=== PATIENT | male | born 1940 | race Caucasian/White ===

== ENCOUNTER 2016-12-10 12:22 | Observation (INO) | payer OTHER ==
[2016-12-10 12:30] VITALS: BMI 35.7
--- NOTE | 2016-12-10 13:33 | PDOC ---
History of Present Illness - General History Source: Patient Exam Limitations: No Limitations - History of Present Illness Initial Comments: 12/10/16 16:21 The patient is a 76 year old male, with a significant past medical history of CAD s/p (x5) stents, HTN, high cholesterol, who was sent to the emergency department after lab work shows elevated liver enzymes and ferritin level. He arrives with c/os of fatigue, abdominal pain, nausea, and hip pain for about 2 weeks. He denies any black stool or red stool. He notes his last bowel movement was loose. He denies his abdominal pain being related to eating. He notes his abdominal pain is often worse at night, and is priarmily in the mid abdomen and is non raditing. He denies any recent fevers, chills, headache or dizziness. He denies any recent vomit, diarrhea or constipation. He denies any recent chest pain or shortness of breath. He denies any recent dysuria, frequency, urgency or hematuria. Allergies: NKA Past surgical history: See HPI Social History: Nonsmoker. Denies EtOH use and recreational drug use. Primary Care Physician: Director Of Content And Programming: (not with [facility]) <Devante Sharma - Last Filed: 12/10/16 16:21> <Daren Aguilera - Last Filed: 12/10/16 17:24> - General Chief Complaint: Revisit, Lab Variance Stated Complaint: (PCP SENT) FATIGUE Time Seen by Provider: 12/10/16 13:16 Past History <Devante Sharma - Last Filed: 12/10/16 16:21> - Past Medical History Cardiac Disorders: Yes HTN: Yes - Surgical History Cardiac Surgery: Yes (STENTS) - Psycho/Social/Smoking Cessation Hx Anxiety: No Suicidal Ideation: No Smoking History: Never smoked Hx Alcohol Use: Yes (SOCIAL) Drug/Substance Use Hx: No Substance Use Type: None <Daren Aguilera - Last Filed: 12/10/16 17:24> - Past Medical History Allergies/Adverse Reactions: Allergies Allergy/AdvReac Type Severity Reaction Status Date / Time No Known Allergies Allergy Verified 12/10/16 12:30 Home Medications: Ambulatory Orders Allopurinol [Zyloprim -] 100 mg PO DAILY 12/10/16 Aspirin [ASA -] 81 mg PO DAILY 12/10/16 Atorvastatin Ca [Lipitor] 40 mg PO HS 12/10/16 Clopidogrel Bisulfate [Plavix -] 75 mg PO DAILY 12/10/16 Isosorbide Mononitrate [Imdur -] 30 mg PO DAILY 12/10/16 Metoprolol Succinate [Toprol Xl] 100 mg PO DAILY 12/10/16 Niacin [Niaspan] 1,000 mg PO DAILY 12/10/16 Non-Formulary 0 mg PO ASDIR 12/10/16 Ranolazine [Ranexa] 500 mg PO BID 12/10/16 Vitamin B Complex 1 each PO DAILY 12/10/16 Review of Systems - Review of Systems Able to Perform ROS?: Yes Comments:: 12/10/16 16:21 CONSTITUTIONAL: +Fatigue. No reported: Fever, Chills, Diaphoresis, Generalized Weakness, Malaise , Loss of Appetite HEENT: No reported: Rhinorrhea, Nasal Congestion, Throat Pain, Throat Swelling, Difficulty Swallowing, Mouth Swelling, Ear Pain, Eye Pain, Visual Changes CARDIOVASCULAR: No reported: Chest Pain, Syncope, Palpitations, Irregular Heart Rate, Lightheadedness, Peripheral Edema RESPIRATORY: No reported: Cough, Shortness of Breath, SOB with Exertion, Orthopnea, Wheezing , Stridor, Hemoptysis GASTROINTESTINAL: +Nausea and Abd pain. No reported: Vomiting, Diarrhea, Constipation, Melena, Hematochezia GENITOURINARY: No reported: Dysuria, Frequency, Urgency, Hesitancy, Flank Pain, Genital Pain MUSCULOSKELETAL: No reported: Myalgia, Arthralgia, Joint Swelling, Back pain, Neck Pain SKIN: No reported: Rash, Itching, Pallor HEMATOLOGIC/IMMUNOLOGIC: No reported: Easy Bleeding, Easy Bruising, Lymphadenopathy, Frequent infections ENDOCRINE: No reported: Unexplained Weight Gain, Unexplained Weight Loss, Heat Intolerance , Cold Intolerance NEUROLOGIC: No reported: Headache, Focal Weakness, Paresthesias, Vertigo, Lightheadedness, Unsteady Gait, Seizure, Mental Status Changes, Incontinence PSYCHIATRIC: No reported: Anxiety, Depression <Devante Sharma - Last Filed: 12/10/16 16:21> *Physical Exam - Vital Signs Last Vital Signs Temp Pulse Resp BP Pulse Ox 97.4 F L 109 H 20 122/91 95 12/10/16 12:27 12/10/16 12:27 12/10/16 12:27 12/10/16 12:27 12/10/16 12:27 - Physical Exam Comments: 12/10/16 16:21 GENERAL: The patient is awake, alert, Nontoxic - in no acute distress. HEAD: Normocephalic, atraumatic. EYES: extraocular movements intact, sclera anicteric, conjunctiva clear. ENT: Normal voice, Moist mucous membranes. NECK: Normal range of motion, supple LUNGS: Breath sounds equal, clear to auscultation bilaterally. No wheezes, no rhonchi, no rales. HEART: Regular rate and rhythm, without murmur, rub or gallop. ABDOMEN: Soft, nontender, normoactive bowel sounds. No guarding, no rebound.No CVA tenderness EXTREMITIES: Normal range of motion, no edema. Bruising on the left distal LE. No cords, erythema, or tenderness. NEUROLOGICAL: No facial asymmetry, Normal speech. PSYCH: Normal mood, normal affect. SKIN: Warm, Dry, normal turgor. <Devante Sharma - Last Filed: 12/10/16 16:21> - Vital Signs Last Vital Signs Temp Pulse Resp BP Pulse Ox 97.4 F L 109 H 20 122/91 95 12/10/16 12:27 12/10/16 12:27 12/10/16 12:27 12/10/16 12:27 12/10/16 12:27 <Daren Aguilera - Last Filed: 12/10/16 17:24> Heart Score/ECG Review - ECG Impressions Comment:: 12/10/16 16:33 Twelve-lead EKG was performed and reviewed by me. There is normal sinus rhythm with a normal rate. rate of 90 TWI in V3-V5 - present on prior ekg supplied from Dr. Marquis MARTÍNEZ <Daren Aguilera - Last Filed: 12/10/16 17:24> ED Treatment Course - LABORATORY CBC & Chemistry Diagram: 12/10/16 14:06 12/10/16 14:06 - ADDITIONAL ORDERS Additional order review: Laboratory Results 12/10/16 12/10/16 14:06 14:06 Sodium 139 Potassium 4.6 Chloride 103 Carbon Dioxide 27 Anion Gap 9 BUN 15 Creatinine 0.9 Creat Clearance w eGFR > 60 Random Glucose 114 H Calcium 8.0 L Ferritin Cancelled Total Bilirubin 0.6 AST 124 H ALT 25 Alkaline Phosphatase 899 H Creatine Kinase 95 Troponin I 0.18 H Total Protein 6.2 L Albumin 2.9 L 12/10/16 14:06 RBC 4.76 MCV 94.7 MCHC 34.0 RDW 13.1 MPV 7.3 L Neutrophils % Automated Logistics Specialist Lymphocytes % Automated Logistics Specialist Monocytes % Automated Logistics Specialist Eosinophils % Automated Logistics Specialist Basophils % Automated Logistics Specialist <Devante Sharma - Last Filed: 12/10/16 16:21> - LABORATORY CBC & Chemistry Diagram: 12/10/16 14:06 12/10/16 14:06 <Daren Aguilera - Last Filed: 12/10/16 17:24> Medical Decision Making - Medical Decision Making 12/10/16 16:36 76y M sent to ED for evaluation by Dr. Zapata pt has been having upper abd/epigastric pain for 2 weeks, typically wrose in the evening w/o any sob, diaphoresis, exertional sypmtoms pt had elevated lfts with alk phos in 700s and very high ferritin level pts labs noted for non negative tropnin of 0.18 when compared to priro ekg, hehas TWI in T3-T5 was was present in prior ekg provided by dr. Zapata consider posisble cardiac cause will obtian US to r/o liver and gb pathology will likely admit the pt for further management 12/10/16 17:23 pt reassessed, states she is feeling better. no cp or abd pain currently case dw dr. zapata agreed with admission requested consult from dr. stephenson of cardiology will admit to telemetry Case discussed in detail with admitting physician including history, physical exam and ancillary studies. Admitting physician has assumed care for the patient, will follow all pending diagnostics and will complete the evaluation and treatment. <Daren Aguilera - Last Filed: 12/10/16 17:24> *DC/Admit/Observation/Transfer - Attestations Scribe Attestion: 12/10/16 16:22 Documentation prepared by Devante Sharma, acting as medical equipment sales for Daren Aguilera MD. <Devante Sharma - Last Filed: 12/10/16 16:21> - Discharge Dispostion Admit: Yes <Daren Aguilera - Last Filed: 12/10/16 17:24> Diagnosis at time of Disposition: Abdominal pain Qualifiers: Abdominal location: epigastric Qualified Code(s): R10.13 - Epigastric pain - Discharge Dispostion Condition at time of disposition: Guarded - Referrals Referrals: Fely Zapata MD [Primary Care Provider] -
[2016-12-10 14:25] LABS: MCH 32.2 pg (25.7-33.7); MEAN CELL VOLUME 94.7 fl (80-96); MEAN PLT VOLUME 7.3 fl (7.5-11.1); PLATELET COUNT 173 K/MM3 (134-434); RDW 13.1 % (11.9-15.9); WHITE BLOOD COUNT 8.3 K/mm3 (4.0-10.0)
[2016-12-10 15:20] LABS: ALBUMIN 2.9 g/dl (3.4-5.0); ANION GAP 9 (8-16); CO2 27 mmol/L (21-32); GLUCOSE,RANDOM 114 mg/dL (74-106)
[2016-12-10 15:25] LABS: ALK PHOS 899 U/L (45-117); BILIRUBIN,TOTAL 0.6 mg/dL (0.2-1.0); CREATININE 0.9 mg/dL (0.7-1.3); SGOT/AST 124 U/L (15-37); SGPT/ALT 25 U/L (12-78); TOT PROT 6.2 g/dl (6.4-8.2); TROPONIN I 0.18 ng/ml (0.00-0.05)
[2016-12-10] MEDS ORDERED: ASPIRIN 81 MG CHEWABLE TABLETS PO ONE (16:33)
[2016-12-10] MEDS ORDERED: ASPIRIN 81 MG CHEWABLE TABLETS ONE (16:45)
[2016-12-10 18:49] LABS: PLATELET ESTIMATE ADEQUATE (NORMAL)
[2016-12-10 20:15] LABS: FERRITIN 4959.996 ng/ml (16.4-293.9)
[2016-12-10] MEDS ORDERED: ZOLPIDEM TARTRATE 5 MG TABLET PO ONE (21:15)
[2016-12-10] MEDS: ATORVASTATIN CA 40 MG TABLET (FP) PO SCH (22:17)
[2016-12-10] MEDS: PANTOPRAZOLE SODIUM 100 ML IVPB SCH (22:17)
[2016-12-10] MEDS: HEPARIN NA (PORCINE) 5,000 UNITS/ML 1ML VIAL SQ SCH (22:17)
[2016-12-10] MEDS: RANOLAZINE E.R. 500 MG TABLET (FP) PO SCH (22:17)
[2016-12-10 22:58] LABS: TROPONIN I 0.19 ng/ml (0.00-0.05)
[2016-12-11 07:21] LABS: MCH 32.6 pg (25.7-33.7); MCHC 34.7 g/dl (32.0-35.9); MEAN CELL VOLUME 94.1 fl (80-96); MEAN PLT VOLUME 7.6 fl (7.5-11.1); PLATELET COUNT 161 K/MM3 (134-434); RDW 13.2 % (11.9-15.9); WHITE BLOOD COUNT 7.4 K/mm3 (4.0-10.0)
[2016-12-11 08:36] LABS: ALBUMIN 2.9 g/dl (3.4-5.0); ALK PHOS 863 U/L (45-117); ANION GAP 12 (8-16); BILIRUBIN,TOTAL 0.8 mg/dL (0.2-1.0); CALCIUM 8.1 mg/dL (8.5-10.1); CO2 26 mmol/L (21-32); CREATININE 0.9 mg/dL (0.7-1.3); GLUCOSE,RANDOM 93 mg/dL (74-106); SGOT/AST 117 U/L (15-37); SGPT/ALT 23 U/L (12-78); TOT PROT 5.8 g/dl (6.4-8.2); TROPONIN I 0.15 ng/ml (0.00-0.05)
[2016-12-11] MEDS: CLOPIDOGREL BISULFATE 75 MG TABLET (FP) PO SCH (10:49)
[2016-12-11] MEDS: METOPROLOL SUCCINATE 100 MG TAB.SR.24H (FP) PO SCH (10:52)
[2016-12-11] MEDS: ASPIRIN 81 MG CHEWABLE TABLETS PO SCH (10:56)
[2016-12-11] MEDS: ALLOPURINOL 100 MG TABLET (FP) PO SCH (10:57)
[2016-12-11] MEDS: ISOSORBIDE MONONITRATE 30 MG TAB.SR.24H (FP) PO SCH (10:57)
[2016-12-11] MEDS: RANOLAZINE E.R. 500 MG TABLET (FP) PO SCH ×2 (10:57→21:01)
[2016-12-11] MEDS: PANTOPRAZOLE SODIUM 100 ML IVPB SCH (10:59)
[2016-12-11] MEDS: HEPARIN NA (PORCINE) 5,000 UNITS/ML 1ML VIAL SQ SCH ×2 (10:59→21:01)
--- NOTE | 2016-12-11 11:08 | EKG ---
Test Reason : Blood Pressure : / mmHG Vent. Rate : 084 BPM Atrial Rate : 084 BPM P-R Int : 190 ms QRS Dur : 142 ms QT Int : 424 ms P-R-T Axes : 044 072 016 degrees QTc Int : 501 ms NORMAL SINUS RHYTHM RIGHT BUNDLE BRANCH BLOCK POSSIBLE INFERIOR INFARCT , AGE UNDETERMINED ABNORMAL ECG WHEN COMPARED WITH ECG OF 10-DEC-2016 14:31, BORDERLINE CRITERIA FOR INFERIOR INFARCT ARE NOW PRESENT NONSPECIFIC T WAVE ABNORMALITY, IMPROVED IN INFERIOR LEADS T WAVE INVERSION NO LONGER EVIDENT IN ANTEROLATERAL LEADS Confirmed by WALTER DOMINGO MD ([id number]) on 12/11/2016 11:08:04 AM Referred By: HEIKE LEON Confirmed By:WALTER DOMINGO MD
--- NOTE | 2016-12-11 11:09 | EKG ---
Test Reason : Blood Pressure : / mmHG Vent. Rate : 090 BPM Atrial Rate : 090 BPM P-R Int : 178 ms QRS Dur : 132 ms QT Int : 412 ms P-R-T Axes : 035 049 008 degrees QTc Int : 504 ms NORMAL SINUS RHYTHM POSSIBLE LEFT ATRIAL ENLARGEMENT RIGHT BUNDLE BRANCH BLOCK T WAVE ABNORMALITY, CONSIDER LATERAL ISCHEMIA ABNORMAL ECG WHEN COMPARED WITH ECG OF 27-MAY-2005 08:55, RIGHT BUNDLE BRANCH BLOCK IS NOW PRESENT Confirmed by CHAYO HAMILTON, WALTER ([id number]) on 12/11/2016 11:09:13 AM Referred By: Confirmed By:WALTER DOMINGO MD
[2016-12-11 11:30] LABS: PLATELET ESTIMATE ADEQUATE (NORMAL)
--- NOTE | 2016-12-11 11:52 | HP ---
Admitting History and Physical - Primary Care Physician PCP: Fely Cho - Admission Chief Complaint: abnormal labs and bloating History of Present Illness: The patient is a 76 year old male, with a significant past medical history of CAD s/p (x5) stents, HTN, high cholesterol, who was sent to the emergency department after lab work shows elevated liver enzymes and ferritin level. He arrives with c/os of fatigue, abdominal pain, nausea, and hip pain for about 2 weeks. He denies any black stool or red stool. He notes his last bowel movement was loose. He denies his abdominal pain being related to eating. He notes his abdominal pain is often worse at night, and is in the mid abdomen and is non radiating. He denies any recent fevers, chills, headache or dizziness. He denies any recent vomit, diarrhea or constipation. He denies any recent chest pain or shortness of breath. He denies any recent dysuria, frequency, urgency or hematuria. Allergies: NKA Past surgical history: See HPI Social History: Nonsmoker. Denies EtOH use and recreational drug use. Primary Care Physician: Gastroenterology Manager: (not with [facility]) History Source: Patient - Past Medical History Cardiovascular: Yes: CAD, HTN, Hyperlipdemia - Smoking History Smoking history: Never smoked Have you smoked in the past 12 months: No - Alcohol/Substance Use Hx Alcohol Use: Yes (SOCIAL) Home Medications - Allergies Allergies/Adverse Reactions: Allergies Allergy/AdvReac Type Severity Reaction Status Date / Time No Known Allergies Allergy Verified 12/10/16 12:30 - Home Medications Home Medications: Ambulatory Orders Allopurinol [Zyloprim -] 100 mg PO DAILY 12/10/16 Aspirin [ASA -] 81 mg PO DAILY 12/10/16 Atorvastatin Ca [Lipitor] 40 mg PO HS 12/10/16 Clopidogrel Bisulfate [Plavix -] 75 mg PO DAILY 12/10/16 Isosorbide Mononitrate [Imdur -] 30 mg PO DAILY 12/10/16 Metoprolol Succinate [Toprol Xl] 100 mg PO DAILY 12/10/16 Niacin [Niaspan] 1,000 mg PO DAILY 12/10/16 Non-Formulary 0 mg PO ASDIR 12/10/16 Ranolazine [Ranexa] 500 mg PO BID 12/10/16 Vitamin B Complex 1 each PO DAILY 12/10/16 Review of Systems - Review of Systems HENT: reports: No Symptoms Neck: reports: No Symptoms Cardiovascular: reports: No Symptoms Respiratory: reports: No Symptoms Gastrointestinal: reports: Bloating Physical Examination Vital Signs: Vital Signs Temperature 98.5 F 12/11/16 05:25 Pulse Rate 77 12/11/16 05:25 Respiratory Rate 20 12/11/16 05:25 Blood Pressure 136/72 12/11/16 05:25 O2 Sat by Pulse Oximetry (%) 98 12/10/16 21:00 Constitutional: Yes: Calm Neck: Yes: Trachea Midline Cardiovascular: Yes: Regular Rate and Rhythm, S1, S2 Respiratory: Yes: CTA Bilaterally Gastrointestinal: Yes: Normal Bowel Sounds, Soft Edema: No Neurological: Yes: Alert, Oriented Labs: CBC, BMP 12/11/16 05:37 12/11/16 05:37 Problem List - Problems (1) Alkaline phosphatase elevation Assessment/Plan: check PSA GGTP liver ultrasound/ bone scan GI eval Code(s): R74.8 - ABNORMAL LEVELS OF OTHER SERUM ENZYMES (2) Abdominal pain Assessment/Plan: inc ALk phos ,ferritin possible bony or liver source GI consult check ggtp liver sono bone scan tumor markers sent Code(s): R10.9 - UNSPECIFIED ABDOMINAL PAIN Qualifiers: Abdominal location: epigastric Qualified Code(s): R10.13 - Epigastric pain (3) CAD (coronary artery disease) Assessment/Plan: cardio consult continue asa ,plavix and ranexa for now Code(s): I25.10 - ATHSCL HEART DISEASE OF [place] CORONARY ARTERY W/O ANG PCTRS
--- NOTE | 2016-12-11 13:46 | CON.CARD ---
Consult Consult Specialty:: cardiology Referred by:: Marquis Reason for Consultation:: Abnormal cardiac markers, coronary artery disease - History of Present Illness Chief Complaint: Nausea and vomiting, abdominal pain History of Present Illness: The patient is a 76-year-old obese man, with a history of hypertension, hyperlipidemia, coronary artery disease, status post multiple stents, now admitted with abdominal pain, nausea, fatigue. The patient denies chest pains. He is currently comfortable and symptom free. The patient was found to have a high ferritin and alkaline phosphatase levels ( 900). Troponin was 0.18. There were no new acute ECG changes. ECG; normal sinus rhythm, normal axis, first-degree AV block, right bundle branch block, old inferior infarct, nonspecific ST-T changes. - History Source History Provided By: Patient, Family Member, Medical Record Limitations to Obtaining History: No Limitations - Past Medical History Cardio/Vascular: Yes: CAD, HTN, Hyperlipdemia - Alcohol/Substance Use Hx Alcohol Use: Yes (SOCIAL) - Smoking History Smoking history: Never smoked Have you smoked in the past 12 months: No Home Medications - Allergies Allergies/Adverse Reactions: Allergies Allergy/AdvReac Type Severity Reaction Status Date / Time No Known Allergies Allergy Verified 12/10/16 12:30 - Home Medications Home Medications: Ambulatory Orders Allopurinol [Zyloprim -] 100 mg PO DAILY 12/10/16 Aspirin [ASA -] 81 mg PO DAILY 12/10/16 Atorvastatin Ca [Lipitor] 40 mg PO HS 12/10/16 Clopidogrel Bisulfate [Plavix -] 75 mg PO DAILY 12/10/16 Isosorbide Mononitrate [Imdur -] 30 mg PO DAILY 12/10/16 Metoprolol Succinate [Toprol Xl] 100 mg PO DAILY 12/10/16 Niacin [Niaspan] 1,000 mg PO DAILY 12/10/16 Non-Formulary 0 mg PO ASDIR 12/10/16 Ranolazine [Ranexa] 500 mg PO BID 12/10/16 Vitamin B Complex 1 each PO DAILY 12/10/16 Review of Systems - Review of Systems Constitutional: reports: No Symptoms Eyes: reports: No Symptoms HENT: reports: No Symptoms Neck: reports: No Symptoms Respiratory: reports: No Symptoms Gastrointestinal: reports: Abdominal Pain, Bloating, Nausea Genitourinary: reports: No Symptoms Breasts: reports: No Symptoms Reported Musculoskeletal: reports: No Symptoms Integumentary: reports: No Symptoms Neurological: reports: No Symptoms Endocrine: reports: No Symptoms Hematology/Lymphatic: reports: No Symptoms Psychiatric: reports: No Symptoms - Risk Factors Known Risk Factors: Yes: Gender, Hypercholesterolemia, Hypertension, Physical Inactivity, Prior DE /Emb Stroke Vital Signs: Vital Signs Temperature 98.6 F 12/11/16 10:00 Pulse Rate 78 12/11/16 10:00 Respiratory Rate 20 12/11/16 10:00 Blood Pressure 122/66 12/11/16 10:00 O2 Sat by Pulse Oximetry (%) 98 12/11/16 10:00 Constitutional: Yes: No Distress, Calm, Other (Obese) Eyes: Yes: WNL HENT: Yes: WNL Neck: Yes: WNL, Supple Respiratory: Yes: WNL Gastrointestinal: Yes: Normal Bowel Sounds, Soft, Abdomen, Obese Renal/: Yes: WNL Cardiovascular: Yes: WNL, Regular Rate and Rhythm PMI: Non-Displaced Musculoskeletal: Yes: WNL Extremities: Yes: WNL Edema: No Peripheral Pulses WNL: Yes Integumentary: Yes: WNL Neurological: Yes: WNL ...Motor Strength: WNL Psychiatric: Yes: WNL - Other Data Labs, Other Data: CBC, BMP 12/11/16 05:37 12/11/16 05:37 Troponin, BNP 12/10/16 12/11/16 21:30 05:37 Troponin I 0.19 H 0.15 H Troponin, BNP 12/10/16 12/11/16 21:30 05:37 Troponin I 0.19 H 0.15 H Assessment/Plan 76-year-old man with a history of hypertension, hyperlipidemia, coronary artery disease, status post multiple stents, status post recent PTCA of the LAD and diagonal branches at the [facility], now presenting with abdominal pain , markedly elevated alkaline phosphatase and ferritin levels. Mild troponin elevation. The patient reports no angina. He is quite comfortable. Would continue present care and regimen. Workup for underlying malignancy. There is no need for further cardiac workup at this point. Will follow results.
[2016-12-11] MEDS: ATORVASTATIN CA 40 MG TABLET (FP) PO SCH (21:01)
[2016-12-12 08:29] LABS: ALBUMIN 2.6 g/dl (3.4-5.0); ANION GAP 10 (8-16); BILIRUBIN,TOTAL 0.8 mg/dL (0.2-1.0); CALCIUM 7.8 mg/dL (8.5-10.1); CO2 25 mmol/L (21-32); CREATININE 0.8 mg/dL (0.7-1.3); GLUCOSE,RANDOM 91 mg/dL (74-106); SGOT/AST 100 U/L (15-37); SGPT/ALT 21 U/L (12-78); TOT PROT 5.6 g/dl (6.4-8.2)
--- NOTE | 2016-12-12 08:48 | PN ---
Progress Note, Physician History of Present Illness: WEAK POOR APPETITE NO CP - Current Medication List Current Medications: Active Medications Allopurinol (Zyloprim -) 100 mg PO DAILY [facility] Last Admin: 12/11/16 10:57 Dose: 100 mg Aspirin (Asa -) 81 mg PO DAILY [facility] Last Admin: 12/11/16 10:56 Dose: 81 mg Atorvastatin Calcium (Lipitor -) 40 mg PO HS [facility] Last Admin: 12/11/16 21:01 Dose: 40 mg Clopidogrel Bisulfate (Plavix -) 75 mg PO DAILY [facility] Last Admin: 12/11/16 10:49 Dose: 75 mg Heparin Sodium (Porcine) (Heparin -) 5,000 unit SQ BID [facility] Last Admin: 12/11/16 21:01 Dose: 5,000 unit Pantoprazole Sodium (Protonix 40mg Ivpb (Pre-Docked)) 100 mls @ 200 mls/hr IVPB DAILY [facility] Last Admin: 12/11/16 10:59 Dose: 200 mls/hr Isosorbide Mononitrate (Imdur -) 30 mg PO DAILY [facility] Last Admin: 12/11/16 10:57 Dose: 30 mg Metoprolol Succinate (Toprol Xl -) 100 mg PO DAILY [facility] Last Admin: 12/11/16 10:52 Dose: 100 mg Ranolazine (Ranexa -) 500 mg PO BID [facility] Last Admin: 12/11/16 21:01 Dose: 500 mg - Objective Vital Signs: Vital Signs Temperature 98.3 F 12/12/16 05:56 Pulse Rate 69 12/12/16 05:56 Respiratory Rate 18 12/12/16 05:56 Blood Pressure 142/76 12/12/16 05:56 O2 Sat by Pulse Oximetry (%) 95 12/11/16 21:00 Cardiovascular: Yes: Regular Rate and Rhythm Respiratory: Yes: Regular, CTA Bilaterally Gastrointestinal: Yes: Normal Bowel Sounds, Soft Labs: CBC, BMP 12/11/16 05:37 - ....Imaging Other: Report Reviewed (BONE SCAN--POSITIVE METS) Problem List - Problems (1) Prostate cancer Assessment/Plan: follow [facility] urology Code(s): C61 - MALIGNANT NEOPLASM OF PROSTATE (2) Prostate cancer metastatic to bone Assessment/Plan: await psa urology/oncology Code(s): C61 - MALIGNANT NEOPLASM OF PROSTATE C79.51 - SECONDARY MALIGNANT NEOPLASM OF BONE Assessment/Plan - Problems (1) Alkaline phosphatase elevation Assessment/Plan: check PSA GGTP liver ultrasound/ bone scan--c/w METS GI eval Code(s): R74.8 - ABNORMAL LEVELS OF OTHER SERUM ENZYMES (2) Abdominal pain Assessment/Plan: inc ALk phos ,ferritin possible bony or liver source GI consult check ggtp liver sono bone scan tumor markers sent Code(s): R10.9 - UNSPECIFIED ABDOMINAL PAIN Qualifiers: Abdominal location: epigastric Qualified Code(s): R10.13 - Epigastric pain (3) CAD (coronary artery disease) Assessment/Plan: cardio consult continue asa ,plavix and ranexa for now Code(s): I25.10 - ATHSCL HEART DISEASE OF [place] CORONARY ARTERY W/O ANG PCTRS
[2016-12-12 08:52] LABS: ALK PHOS 823 U/L (45-117)
[2016-12-12 08:55] LABS: FERRITIN 5665.327 ng/ml (16.4-293.9)
[2016-12-12 09:19] LABS: TROPONIN I 0.13 ng/ml (0.00-0.05)
[2016-12-12] MEDS: CLOPIDOGREL BISULFATE 75 MG TABLET (FP) PO SCH (10:07)
[2016-12-12] MEDS: ISOSORBIDE MONONITRATE 30 MG TAB.SR.24H (FP) PO SCH (10:07)
[2016-12-12] MEDS: RANOLAZINE E.R. 500 MG TABLET (FP) PO SCH ×2 (10:07→22:38)
[2016-12-12] MEDS: METOPROLOL SUCCINATE 100 MG TAB.SR.24H (FP) PO SCH (10:07)
[2016-12-12] MEDS: ALLOPURINOL 100 MG TABLET (FP) PO SCH (10:08)
[2016-12-12] MEDS: HEPARIN NA (PORCINE) 5,000 UNITS/ML 1ML VIAL SQ SCH ×2 (10:08→22:39)
[2016-12-12] MEDS: ASPIRIN 81 MG CHEWABLE TABLETS PO SCH (10:08)
[2016-12-12] MEDS: PANTOPRAZOLE SODIUM 100 ML IVPB SCH (10:08)
--- NOTE | 2016-12-12 13:39 | PN ---
Progress Note (short form) - Note Progress Note: Consult dictated 76 year old with history of radical prostatectomy in 1997 for prostate cancer. Abnormal bone scan in 2016. Under care of Shawn, Dr. Ku, and receiving hormone injections past 5-6 months . Presents now with abdominal pains , nausea, some lower back pains . New bone scan with progressive bone mets ( when compared to 2016) in addition to new bone mets. Unclear without baseline bone scan prior to hormone therapy initiation, timing and occurrence of bone mets and/or response. PSA response may be surrogate to suggest response . Has markedly elevated ferritin. If this is a new finding may be related to underling malignancy and mets. Does not fit many of the criteria of hemophagocytic lymphohistiocytosis syndrome. Suggest Follow up with Dr. Ku re:response to hormonal therapy. Will obtain CT of Liver Check HFE With back pain and bone mets , would order MRI of spine if feasible.
--- NOTE | 2016-12-12 13:43 | PN ---
Progress Note, Physician Chief Complaint: The patient is quite comfortable. Abdominal pain resolved. No chest pains. His breathing comfortably. History of Present Illness: The patient is a 76-year-old obese man, with a history of hypertension, hyperlipidemia, coronary artery disease, status post multiple stents, now admitted with abdominal pain, nausea, fatigue. The patient denies chest pains. He is currently comfortable and symptom free. The patient was found to have a high ferritin and alkaline phosphatase levels ( 900). Troponin was 0.18. There were no new acute ECG changes. ECG; normal sinus rhythm, normal axis, first-degree AV block, right bundle branch block, old inferior infarct, nonspecific ST-T changes. - Current Medication List Current Medications: Active Medications Allopurinol (Zyloprim -) 100 mg PO DAILY [facility] Last Admin: 12/12/16 10:08 Dose: 100 mg Aspirin (Asa -) 81 mg PO DAILY [facility] Last Admin: 12/12/16 10:08 Dose: 81 mg Atorvastatin Calcium (Lipitor -) 40 mg PO HS [facility] Last Admin: 12/11/16 21:01 Dose: 40 mg Clopidogrel Bisulfate (Plavix -) 75 mg PO DAILY [facility] Last Admin: 12/12/16 10:07 Dose: 75 mg Heparin Sodium (Porcine) (Heparin -) 5,000 unit SQ BID [facility] Last Admin: 12/12/16 10:08 Dose: 5,000 unit Pantoprazole Sodium (Protonix 40mg Ivpb (Pre-Docked)) 100 mls @ 200 mls/hr IVPB DAILY [facility] Last Admin: 12/12/16 10:08 Dose: 200 mls/hr Isosorbide Mononitrate (Imdur -) 30 mg PO DAILY [facility] Last Admin: 12/12/16 10:07 Dose: 30 mg Metoprolol Succinate (Toprol Xl -) 100 mg PO DAILY [facility] Last Admin: 12/12/16 10:07 Dose: 100 mg Ranolazine (Ranexa -) 500 mg PO BID [facility] Last Admin: 12/12/16 10:07 Dose: 500 mg - Objective Vital Signs: Vital Signs Temperature 97.7 F 12/12/16 10:00 Pulse Rate 65 12/12/16 10:00 Respiratory Rate 18 12/12/16 10:00 Blood Pressure 146/70 12/12/16 10:00 O2 Sat by Pulse Oximetry (%) 95 12/12/16 09:00 Constitutional: Yes: Well Nourished, No Distress, Calm Eyes: Yes: WNL HENT: Yes: WNL Neck: Yes: WNL Cardiovascular: Yes: WNL, Regular Rate and Rhythm, S1, S2 Respiratory: Yes: WNL Gastrointestinal: Yes: Normal Bowel Sounds, Soft, Abdomen, Obese ...Rectal Exam: Yes: Deferred Musculoskeletal: Yes: WNL Extremities: Yes: WNL Edema: No Peripheral Pulses WNL: Yes Integumentary: Yes: WNL Neurological: Yes: WNL ...Motor Strength: WNL Psychiatric: Yes: WNL Assessment/Plan The patient has been stable and comfortable. Bone scan is consistent with metastatic disease. Telemetry showing periods of high-grade AV block. No symptoms. Please decrease Toprol-XL from 100-50 mg daily. Continue cardiac monitoring. If heart block persists; would stop the Toprol. There is no need for further cardiac workup at this point. We'll follow with you.
--- NOTE | 2016-12-12 14:31 | CONS ---
DATE OF CONSULTATION: 12/12/2016 This 76-year-old is being seen at the request of Dr. Cho. The patient is a 76-year-old male with a history of hypertension, hyperlipidemia, coronary artery disease, status post stents x5, admitted with nausea and abdominal pain. No specific chest pain. He also has back pain. The patient is being seen for evaluation of a high ferritin as well as alkaline phosphatase elevations. The patient has a history of prostate cancer treated with total prostatectomy in 1997. The patient has been followed by Dr. Rodas. Patient, for the past 5 or 6 months, has been receiving hormone injections according to his . The patient did have a prior bone scan in 2014 and current bone scan recently done reveals increase in number of bony lesions compatible with metastatic disease. These include the skull, the ribs, the spine, and femurs. PAST MEDICAL HISTORY: As aforementioned includes ASHD, coronary artery disease, status post stents, hyperlipidemia, hypertension. There is a history of CT in the past. There is a history of stroke in the past. There is no history of thyroid disease, anemia, or kidney disease. 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 The patient is a former smoker, discontinued more than 20 years ago. Patient is a social drinker. ALLERGIES: There are no allergies. MEDICINES: Allopurinol 100 a day, aspirin 81, Lipitor 40, Plavix 75, Imdur 30, metoprolol 100, Niaspan 1000, ASDIR Ranexa 500, and vitamin B. REVIEW OF SYSTEMS: No headaches. No diplopia. Recent epistaxis from the left naris. No dysphagia. No odynophagia. Some shortness of breath. Some dyspnea. No chest pain. Some nausea. Some constipation. No diarrhea. No dysuria. No hematuria. No pyuria. Nocturia x1. Lower back pain. Numbness and tingling of the fingers and toes. CURRENT PHYSICAL EXAMINATION: General: The patient is lying in bed in no acute distress. Vital signs: BP 146/70, pulse 65 regular, respiratory rate 18, temperature 97.7. HEENT: TRINO, EOM intact. Oropharynx upper biplate, papillated tongue. Neck: Supple. No thyromegaly, no masses. Nodes: No cervical, supraclavicular, or axillary nodes. Lungs: Clear to percussion auscultation without rales or rhonchi. Cardiac: Regular sinus rhythm with systolic murmur. Abdomen: Obese. No definite organomegaly. No masses. Nontender. Bowel sounds active. Extremities: No significant lower extremity edema. No Homans sign. No calf tenderness. LABORATORY: As is available. WBC 7.4, hematocrit 40, normal MCV, platelets 161, 56 neutrophils, 30 lymphocytes, 9 monocytes, 3 eosinophils. Chemistries 139 sodium K41, chloride 104, CO2 of 25, BUN 13, creatinine 0.8, A1c 6.2, calcium 7.8, iron saturation pending, ferritin 5665, GGTP 62, AST 100, ALT 21, protein 5.6, albumin 2.6. PSA is pending. Bone scan: In comparison to a prior bone scan in 2016, there is increased number of abnormal foci in the calvaria, ribs, pelvis, femurs, right tibia, thoracic and lumbar spines, possibly the cervical spine. IMPRESSION: Patient with history of prostate cancer status post radical prostatectomy in 1997, most recently with hormone therapy over the past 5-6 months. Patient now presents with progressive abnormal bone scan most compatible with bone metastases. Patient does have abnormalities of liver function, but nonspecific ultrasound. CT scan to be performed. Patient does have an extremely high ferritin. This may well be on the basis of metastatic disease and/or liver disease. Absence of splenomegaly, absence of central nervous system disease, absence of cytopenia suggest that the high ferritin is not related to hemophagocytic lymphohistiocytosis syndrome, but more likely related to underlying metastatic disease. Await PSA. Will need input from . Will obtain CT scan of liver. In view of back pain, would consider MRI of spine. DANK DOUGHERTY M.D. [id number]
--- NOTE | 2016-12-12 14:58 | CON.GU ---
Consult Consult Specialty:: urology Referred by:: Marquis Reason for Consultation:: metastatic prostate cancer - History of Present Illness Chief Complaint: abdominal pain, increased LFTs History of Present Illness: 76 year old male who had a radical prostatectomy in 1997 and began to have rising PSAs in 2016. was started on Firmagon. He has evidence of worsening bony metastatic disease. His most recent PSA was 3.6, one is pending here. He denies any difficulty voiding. He is having pain in multiple sites, but also has a history of spinal stenosis. - History Source History Provided By: Patient, Medical Record Limitations to Obtaining History: No Limitations - Past Medical History Cardio/Vascular: Yes: CAD, HTN, Hyperlipdemia Renal/: Yes: Cancer (mCRPC) - Alcohol/Substance Use Hx Alcohol Use: Yes (SOCIAL) - Smoking History Smoking history: Never smoked Have you smoked in the past 12 months: No Home Medications - Allergies Allergies/Adverse Reactions: Allergies Allergy/AdvReac Type Severity Reaction Status Date / Time No Known Allergies Allergy Verified 12/10/16 12:30 - Home Medications Home Medications: Ambulatory Orders Allopurinol [Zyloprim -] 100 mg PO DAILY 12/10/16 Aspirin [ASA -] 81 mg PO DAILY 12/10/16 Atorvastatin Ca [Lipitor] 40 mg PO HS 12/10/16 Clopidogrel Bisulfate [Plavix -] 75 mg PO DAILY 12/10/16 Isosorbide Mononitrate [Imdur -] 30 mg PO DAILY 12/10/16 Metoprolol Succinate [Toprol Xl] 100 mg PO DAILY 12/10/16 Niacin [Niaspan] 1,000 mg PO DAILY 12/10/16 Non-Formulary 0 mg PO ASDIR 12/10/16 Ranolazine [Ranexa] 500 mg PO BID 12/10/16 Vitamin B Complex 1 each PO DAILY 12/10/16 Review of Systems - Review of Systems Genitourinary: denies: Frequency, Hematuria Musculoskeletal: reports: Back Pain, Extremity Pain, Joint Pain Physical Exam- Vital Signs: Vital Signs Temperature 97.8 F 12/12/16 14:47 Pulse Rate 69 12/12/16 14:47 Respiratory Rate 20 12/12/16 14:47 Blood Pressure 120/63 12/12/16 14:47 O2 Sat by Pulse Oximetry (%) 95 12/12/16 09:00 Renal/: No: Bladder Distention, CVA Tenderness - Left, CVA Tenderness - Right , Hauser Present Imaging - Results Other: Report Reviewed Problem List - Problems (1) Prostate cancer Assessment/Plan: Patient with metastatic castrate resistant prostate cancer. He is offered Provenge, Xofigo, Xtandi, or a combination of these as an outpatient. He will also continue Firmagon. Zytiga is less of an option because of his elevated LFTs. Liver US appears to be normal. Code(s): C61 - MALIGNANT NEOPLASM OF PROSTATE (2) Prostate cancer metastatic to bone Code(s): C61 - MALIGNANT NEOPLASM OF PROSTATE C79.51 - SECONDARY MALIGNANT NEOPLASM OF BONE
--- NOTE | 2016-12-12 20:01 | CON.GI ---
Consult Consult Specialty:: GI Referred by:: Dr Cho Reason for Consultation:: inc alk phos and ferritin - History of Present Illness History of Present Illness: 76 M with h/o prostate Ca s/p prostatectomy 1997 with abnormal bone scan 2016 showing metastatic disease to bone. Treated with hormone injections for past [address] showing diffuse bony metastatic lesions. He currently has no pain. . Called to evaluate increased alk phos and ferritin.. - History Source History Provided By: Significant Other, Medical Record Limitations to Obtaining History: No Limitations - Past Medical History Cardio/Vascular: Yes: CAD, HTN, Hyperlipdemia Renal/: Yes: Cancer (mCRPC) - Alcohol/Substance Use Hx Alcohol Use: Yes (SOCIAL) - Smoking History Smoking history: Never smoked Have you smoked in the past 12 months: No Home Medications - Allergies Allergies/Adverse Reactions: Allergies Allergy/AdvReac Type Severity Reaction Status Date / Time No Known Allergies Allergy Verified 12/10/16 12:30 - Home Medications Home Medications: Ambulatory Orders Allopurinol [Zyloprim -] 100 mg PO DAILY 12/10/16 Aspirin [ASA -] 81 mg PO DAILY 12/10/16 Atorvastatin Ca [Lipitor] 40 mg PO HS 12/10/16 Clopidogrel Bisulfate [Plavix -] 75 mg PO DAILY 12/10/16 Isosorbide Mononitrate [Imdur -] 30 mg PO DAILY 12/10/16 Metoprolol Succinate [Toprol Xl] 100 mg PO DAILY 12/10/16 Niacin [Niaspan] 1,000 mg PO DAILY 12/10/16 Non-Formulary 0 mg PO ASDIR 12/10/16 Ranolazine [Ranexa] 500 mg PO BID 12/10/16 Vitamin B Complex 1 each PO DAILY 12/10/16 Physical Exam-GI Vital Signs: Vital Signs Temperature 97.9 F 12/12/16 18:00 Pulse Rate 64 12/12/16 18:00 Respiratory Rate 20 12/12/16 18:00 Blood Pressure 128/68 12/12/16 18:00 O2 Sat by Pulse Oximetry (%) 95 12/12/16 09:00 Constitutional: Yes: Well Nourished Neck: Yes: Supple Cardiovascular: Yes: Regular Rate and Rhythm Respiratory: Yes: CTA Bilaterally Gastrointestinal Inspection: Yes: WNL ...Auscultate: Yes: Hypoactive Bowel Sounds ...Palpate: Yes: Soft Labs: CBC, BMP 12/11/16 05:37 12/12/16 06:00 Hepatic Panel Total Bilirubin 0.8 mg/dL (0.2-1.0) 12/12/16 06:00 AST 100 U/L (15-37) H 12/12/16 06:00 ALT 21 U/L (12-78) 12/12/16 06:00 Alkaline Phosphatase 823 U/L (45-117) H 12/12/16 06:00 Albumin 2.6 g/dl (3.4-5.0) L 12/12/16 06:00 Imaging - Results Other: Report Reviewed (nuclear total body scan-multiple bony mets noted) Assessment/Plan Increased alk phos secondary to bone mets (alk phos is also made in bone) No management necessary Ferritin is a phase reactant and will be non-specifically elevated in patients with malignancy and infection. Thank you FF
[2016-12-12] MEDS: ATORVASTATIN CA 40 MG TABLET (FP) PO SCH (22:38)
[2016-12-12] MEDS ORDERED: oxyCODONE HCL 5 MG TABLET PO ONE (23:45)
[2016-12-13 06:06] LABS: SERUM IRON 43 ug/dL (38-169); TOTAL IRON BINDING CAPACITY 173 ug/dL (250-450); UIBC 130 ug/dL (111-343)
--- NOTE | 2016-12-13 08:01 | PN ---
Progress Note, Physician History of Present Illness: WEAK POOR APPETITE HAD ABDOMINAL PAIN LAST NIGHT--RESPONDED TO OXYCODONE--NOW NO PAIN--CT PENDING NO CP - Current Medication List Current Medications: Active Medications Allopurinol (Zyloprim -) 100 mg PO DAILY [facility] Last Admin: 12/12/16 10:08 Dose: 100 mg Aspirin (Asa -) 81 mg PO DAILY [facility] Last Admin: 12/12/16 10:08 Dose: 81 mg Atorvastatin Calcium (Lipitor -) 40 mg PO HS [facility] Last Admin: 12/12/16 22:38 Dose: 40 mg Clopidogrel Bisulfate (Plavix -) 75 mg PO DAILY [facility] Last Admin: 12/12/16 10:07 Dose: 75 mg Heparin Sodium (Porcine) (Heparin -) 5,000 unit SQ BID [facility] Last Admin: 12/12/16 22:39 Dose: 5,000 unit Pantoprazole Sodium (Protonix 40mg Ivpb (Pre-Docked)) 100 mls @ 200 mls/hr IVPB DAILY [facility] Last Admin: 12/12/16 10:08 Dose: 200 mls/hr Isosorbide Mononitrate (Imdur -) 30 mg PO DAILY [facility] Last Admin: 12/12/16 10:07 Dose: 30 mg Metoprolol Succinate (Toprol Xl -) 50 mg PO DAILY [facility] Ranolazine (Ranexa -) 500 mg PO BID [facility] Last Admin: 12/12/16 22:38 Dose: 500 mg - Objective Vital Signs: Vital Signs Temperature 99.4 F 12/13/16 02:00 Pulse Rate 75 12/13/16 05:58 Respiratory Rate 20 12/13/16 05:58 Blood Pressure 143/80 12/13/16 05:58 O2 Sat by Pulse Oximetry (%) 96 12/12/16 20:37 Cardiovascular: Yes: Regular Rate and Rhythm Respiratory: Yes: Regular, CTA Bilaterally Gastrointestinal: Yes: Normal Bowel Sounds, Soft Edema: No Problem List - Problems (1) Prostate cancer Assessment/Plan: follow psa urology Code(s): C61 - MALIGNANT NEOPLASM OF PROSTATE (2) Prostate cancer metastatic to bone Assessment/Plan: await psa urology/oncology Code(s): C61 - MALIGNANT NEOPLASM OF PROSTATE C79.51 - SECONDARY MALIGNANT NEOPLASM OF BONE (3) AV block Assessment/Plan: b-blockers decreased monitor on telemetry d/w cardio Code(s): I44.30 - UNSPECIFIED ATRIOVENTRICULAR BLOCK Assessment/Plan - Problems (1) Alkaline phosphatase elevation Assessment/Plan: check PSA GGTP liver ultrasound/ bone scan--c/w METS GI eval Code(s): R74.8 - ABNORMAL LEVELS OF OTHER SERUM ENZYMES (2) Abdominal pain Assessment/Plan: inc ALk phos ,ferritin possible bony or liver source GI consult noted check ggtp liver sono ct pending tumor markers sent Code(s): R10.9 - UNSPECIFIED ABDOMINAL PAIN Qualifiers: Abdominal location: epigastric Qualified Code(s): R10.13 - Epigastric pain (3) CAD (coronary artery disease) Assessment/Plan: cardio consult noted--meds adjusted continue asa ,plavix and ranexa for now Code(s): I25.10 - ATHSCL HEART DISEASE OF [place] CORONARY ARTERY W/O ANG PCTRS
[2016-12-13 08:58] LABS: BASOPHIL 0.5 % (0-2.0); EOSINOPHIL 3.1 % (0-4.5); MCH 32.1 pg (25.7-33.7); MCHC 34.1 g/dl (32.0-35.9); MEAN PLT VOLUME 7.4 fl (7.5-11.1); PLATELET COUNT 179 K/MM3 (134-434); RDW 13.3 % (11.9-15.9); WHITE BLOOD COUNT 6.2 K/mm3 (4.0-10.0)
[2016-12-13 09:21] LABS: ALBUMIN 2.6 g/dl (3.4-5.0); ALK PHOS 800 U/L (45-117); ANION GAP 9 (8-16); BILIRUBIN,TOTAL 0.8 mg/dL (0.2-1.0); CALCIUM 8.2 mg/dL (8.5-10.1); CO2 26 mmol/L (21-32); CREATININE 0.9 mg/dL (0.7-1.3); GLUCOSE,RANDOM 164 mg/dL (74-106); SGOT/AST 71 U/L (15-37); SGPT/ALT 23 U/L (12-78); TOT PROT 5.8 g/dl (6.4-8.2)
[2016-12-13] MEDS: METOPROLOL SUCCINATE 50 MG TAB.SR.24H (FP) PO SCH (09:53)
[2016-12-13] MEDS: HEPARIN NA (PORCINE) 5,000 UNITS/ML 1ML VIAL SQ SCH ×2 (09:53→21:28)
[2016-12-13] MEDS: ISOSORBIDE MONONITRATE 30 MG TAB.SR.24H (FP) PO SCH (09:53)
[2016-12-13] MEDS: RANOLAZINE E.R. 500 MG TABLET (FP) PO SCH ×2 (09:53→21:28)
[2016-12-13] MEDS: ALLOPURINOL 100 MG TABLET (FP) PO SCH (09:53)
[2016-12-13] MEDS: PANTOPRAZOLE SODIUM 100 ML IVPB SCH (09:53)
[2016-12-13] MEDS: CLOPIDOGREL BISULFATE 75 MG TABLET (FP) PO SCH (09:53)
[2016-12-13] MEDS: ASPIRIN 81 MG CHEWABLE TABLETS PO SCH (09:53)
--- NOTE | 2016-12-13 12:35 | PN ---
Progress Note (short form) - Note Progress Note: Progress Note: Patient seen and examined No complaints Vital Signs Period Temp Pulse Resp BP Sys/Moore Pulse Ox Last 24 Hr 97.8 F-99.4 F 64-87 18-20 112-143/55-80 96-96 AFVSS HEENT: TRINO, EOM Intact Skin: No rashes, Integument intact Labs: reviewed CBC, BMP 12/13/16 08:40 12/13/16 08:40 Active Medications Generic Name Dose Route Start Last Admin Trade Name Jennifer PRN Reason Stop Dose Admin Allopurinol 100 mg 12/11/16 10:00 12/13/16 09:53 Zyloprim - PO 100 mg DAILY HERIBERTO Administration Aspirin 81 mg 12/11/16 10:00 12/13/16 09:53 Asa - PO 81 mg DAILY HERIBERTO Administration Atorvastatin Calcium 40 mg 12/10/16 22:00 12/12/16 22:38 Lipitor - PO 40 mg HS HERIBERTO Administration Clopidogrel Bisulfate 75 mg 12/11/16 10:00 12/13/16 09:53 Plavix - PO 75 mg DAILY HERIBERTO Administration Heparin Sodium (Porcine) 5,000 unit 12/10/16 22:00 12/13/16 09:53 Heparin - SQ 5,000 unit BID HERIBERTO Administration Pantoprazole Sodium 100 mls @ 200 mls/hr 12/10/16 20:15 12/13/16 09:53 Protonix 40mg Ivpb (Pre-Docked) IVPB 200 mls/hr DAILY HERIBERTO Administration Isosorbide Mononitrate 30 mg 12/11/16 10:00 12/13/16 09:53 Imdur - PO 30 mg DAILY HERIBERTO Administration Metoprolol Succinate 50 mg 12/13/16 10:00 12/13/16 09:53 Toprol Xl - PO 50 mg DAILY HERIBERTO Administration Ranolazine 500 mg 12/10/16 22:00 12/13/16 09:53 Ranexa - PO 500 mg BID HERIBERTO Administration A/P 76 year old with history of radical prostatectomy in 1998 for prostate cancer. Abnormal bone scan in 2016. Under care of Shawn, Dr. Ku, and receiving hormone injections past 5-[address] Rousseau had a long discussion with his who is more aware of the issues Suggest Follow up with Dr. Ku re:response to hormonal therapy. He just came back form CT of his abdomen Check HFE With back pain and bone mets , would order MRI of spine if feasible.
--- NOTE | 2016-12-13 12:58 | PN ---
Progress Note, Physician Chief Complaint: No complaints today Tele: sinus 90s. Few episodes of blocked pac's History of Present Illness: The patient is a 76-year-old obese man, with a history of hypertension, hyperlipidemia, coronary artery disease, status post multiple stents, now admitted with abdominal pain, nausea, fatigue. The patient denies chest pains. He is currently comfortable and symptom free. The patient was found to have a high ferritin and alkaline phosphatase levels ( 900). Troponin was 0.18. There were no new acute ECG changes. ECG; normal sinus rhythm, normal axis, first-degree AV block, right bundle branch block, old inferior infarct, nonspecific ST-T changes. - Current Medication List Current Medications: Active Medications Allopurinol (Zyloprim -) 100 mg PO DAILY [facility] Last Admin: 12/13/16 09:53 Dose: 100 mg Aspirin (Asa -) 81 mg PO DAILY [facility] Last Admin: 12/13/16 09:53 Dose: 81 mg Atorvastatin Calcium (Lipitor -) 40 mg PO HS [facility] Last Admin: 12/12/16 22:38 Dose: 40 mg Clopidogrel Bisulfate (Plavix -) 75 mg PO DAILY [facility] Last Admin: 12/13/16 09:53 Dose: 75 mg Heparin Sodium (Porcine) (Heparin -) 5,000 unit SQ BID [facility] Last Admin: 12/13/16 09:53 Dose: 5,000 unit Pantoprazole Sodium (Protonix 40mg Ivpb (Pre-Docked)) 100 mls @ 200 mls/hr IVPB DAILY [facility] Last Admin: 12/13/16 09:53 Dose: 200 mls/hr Isosorbide Mononitrate (Imdur -) 30 mg PO DAILY [facility] Last Admin: 12/13/16 09:53 Dose: 30 mg Metoprolol Succinate (Toprol Xl -) 50 mg PO DAILY [facility] Last Admin: 12/13/16 09:53 Dose: 50 mg Ranolazine (Ranexa -) 500 mg PO BID [facility] Last Admin: 12/13/16 09:53 Dose: 500 mg - Objective Vital Signs: Vital Signs Temperature 98.3 F 12/13/16 08:00 Pulse Rate 87 12/13/16 08:00 Respiratory Rate 18 12/13/16 12:00 Blood Pressure 112/55 12/13/16 08:00 O2 Sat by Pulse Oximetry (%) 96 12/13/16 12:00 Constitutional: Yes: No Distress Neck: Yes: Supple Cardiovascular: Yes: Regular Rate and Rhythm, S1, S2. No: JVD, Murmur Respiratory: Yes: CTA Bilaterally Gastrointestinal: Yes: Normal Bowel Sounds, Soft Edema: No Labs: CBC, BMP 12/13/16 08:40 12/13/16 08:40 Assessment/Plan 76-year-old man with a history of hypertension, hyperlipidemia, coronary artery disease, status post multiple stents, status post recent PTCA of the LAD and diagonal branches at the [facility], now presenting with abdominal pain , markedly elevated alkaline phosphatase and ferritin levels. Mild troponin elevation. The patient reports no angina. He is quite comfortable. Would continue present care and work up as per primary team for malignancy. There is no need for further cardiac workup at this point. Tolerating lower beta xochitl dose. Metoprolol 50mg xl daily. Tele demonstrates sinus rhythm with rates 90s with few episodes of blocked pac' s since last night. Will sign off at this time. Can DC tele.
--- NOTE | 2016-12-13 13:15 | CON.PULM ---
Consult Consult Specialty:: PULMONARY Referred by:: CRISTIANO Reason for Consultation:: R/O OSAS - History of Present Illness Chief Complaint: MILD SOB ON EXERTION History of Present Illness: The patient is a 76 year old male, with a significant past medical history of CAD s/p (x5) stents, HTN, high cholesterol, who was sent to the emergency department after lab work shows elevated liver enzymes and ferritin level. He arrives with c/os of fatigue, abdominal pain, nausea, and hip pain for about 2 weeks. He denies any black stool or red stool. He notes his last bowel movement was loose. He denies his abdominal pain being related to eating. He notes his abdominal pain is often worse at night, and is in the mid abdomen and is non radiating. He denies any recent fevers, chills, headache or dizziness. He denies any recent vomit, diarrhea or constipation. He denies any recent chest pain or shortness of breath. He denies any recent dysuria, frequency, urgency or hematuria. - History Source History Provided By: Patient, Medical Record Limitations to Obtaining History: No Limitations - Past Medical History CELERY WRAPPER: No: Alzheimer's Cardio/Vascular: Yes: CAD, HTN, Hyperlipdemia Pulmonary: Yes: COPD Renal/: Yes: Cancer (mCRPC) - Alcohol/Substance Use Hx Alcohol Use: Yes (SOCIAL) - Smoking History Smoking history: Former smoker Have you smoked in the past 12 months: No - Social History Usual Living Arrangement: With Spouse Occupation: WORKED IN CONSTRUCTION/QUILTING SUPERVISOR Place of : Other History of Recent Travel: No Home Medications - Allergies Allergies/Adverse Reactions: Allergies Allergy/AdvReac Type Severity Reaction Status Date / Time No Known Allergies Allergy Verified 12/10/16 12:30 - Home Medications Home Medications: Ambulatory Orders Allopurinol [Zyloprim -] 100 mg PO DAILY 12/10/16 Aspirin [ASA -] 81 mg PO DAILY 12/10/16 Atorvastatin Ca [Lipitor] 40 mg PO HS 12/10/16 Clopidogrel Bisulfate [Plavix -] 75 mg PO DAILY 12/10/16 Isosorbide Mononitrate [Imdur -] 30 mg PO DAILY 12/10/16 Metoprolol Succinate [Toprol Xl] 100 mg PO DAILY 12/10/16 Niacin [Niaspan] 1,000 mg PO DAILY 12/10/16 Non-Formulary 0 mg PO ASDIR 12/10/16 Ranolazine [Ranexa] 500 mg PO BID 12/10/16 Vitamin B Complex 1 each PO DAILY 12/10/16 Family Disease History - Family Disease History Family History: Unremarkable Review of Systems - Review of Systems Constitutional: denies: Fever Eyes: denies: Blurred Vision HENT: denies: Difficult Swallowing Neck: denies: Decreased ROM Cardiovascular: denies: Chest Pain Respiratory: reports: SOB on Exertion Gastrointestinal: denies: Abdominal Pain Physical Exam Vital Sings: Vital Signs Temperature 98.3 F 12/13/16 08:00 Pulse Rate 87 12/13/16 08:00 Respiratory Rate 18 12/13/16 12:00 Blood Pressure 112/55 12/13/16 08:00 O2 Sat by Pulse Oximetry (%) 96 12/13/16 12:00 Constitutional: Yes: Calm Eyes: Yes: EOM Intact HENT: Yes: Normocephalic Neck: Yes: Trachea Midline Cardiovascular: Yes: Regular Rate and Rhythm Respiratory: Yes: CTA Bilaterally Gastrointestinal: Yes: Abdomen, Obese Edema: No Labs: CBC, BMP 12/13/16 08:40 12/13/16 08:40 Imaging - Results Chest X-ray: Image Reviewed Cat Scan: Report Reviewed Other: Report Reviewed (BONE SCAN) Problem List - Problems (1) Alkaline phosphatase elevation Code(s): R74.8 - ABNORMAL LEVELS OF OTHER SERUM ENZYMES (2) CAD (coronary artery disease) Code(s): I25.10 - ATHSCL HEART DISEASE OF [place] CORONARY ARTERY W/O ANG PCTRS (3) Prostate cancer Code(s): C61 - MALIGNANT NEOPLASM OF PROSTATE (4) Prostate cancer metastatic to bone Code(s): C61 - MALIGNANT NEOPLASM OF PROSTATE C79.51 - SECONDARY MALIGNANT NEOPLASM OF BONE Assessment/Plan WILL ORDER OSAS SCREENING WHILE IN HOSPITAL IF POSITIVE WILL ORDER PSG AN OUTPATIENT Floyd RUTLEDGE MD
[2016-12-13 16:34] LABS: TROPONIN I 0.36 ng/ml (0.00-0.05)
--- NOTE | 2016-12-13 16:43 | PN ---
GI Progress Note Subjective: Patient comfortable Had long discussion with re: diagnostic picture - Objective Vital Signs: Vital Signs Temperature 98.6 F 12/13/16 14:05 Pulse Rate 81 12/13/16 14:05 Respiratory Rate 20 12/13/16 14:05 Blood Pressure 113/69 12/13/16 14:05 O2 Sat by Pulse Oximetry (%) 96 12/13/16 12:00 Constitutional: Well Nourished, Anxious Neck: Yes: Supple Cardiovascular: Yes: Regular Rate and Rhythm Respiratory: Yes: CTA Bilaterally Gastrointestinal Inspection: Yes: WNL ...Auscultate: Yes: Normoactive Bowel Sounds ...Palpate: Yes: Soft Musculoskeletal: Yes: Back Pain Labs: CBC, BMP 12/13/16 08:40 12/13/16 08:40 Hepatic Panel Total Bilirubin 0.8 mg/dL (0.2-1.0) 12/13/16 08:40 AST 71 U/L (15-37) H D 12/13/16 08:40 ALT 23 U/L (12-78) 12/13/16 08:40 Alkaline Phosphatase 800 U/L (45-117) H 12/13/16 08:40 Albumin 2.6 g/dl (3.4-5.0) L 12/13/16 08:40 - ....Imaging Cat Scan: Report Reviewed (steatosis and caudate lobe enlargement.) Assessment/Plan Patient with metastatic prostate ca Markedly increased Ferritin and liver with enlarged caudate lobe. No splenomegaly. Unlikely high ferritin secondary to hemochromatosis, which would have affected several organs at a much younger age. More likely related to malignancy LFTs essentially normal other than alk phos. Will fractionate iso-enzymes to determine source (bone vs liver)
[2016-12-13 18:02] LABS: FERRITIN 5608.429 ng/ml (16.4-293.9)
[2016-12-13] MEDS: ATORVASTATIN CA 40 MG TABLET (FP) PO SCH (21:28)
[2016-12-14 02:55] VITALS: TEMP 98
[2016-12-14 08:15] LABS: TROPONIN I 0.18 ng/ml (0.00-0.05)
--- NOTE | 2016-12-14 09:09 | DS ---
Physical Examination Vital Signs: Vital Signs Temperature 98 F 12/14/16 02:00 Pulse Rate 75 12/14/16 06:00 Respiratory Rate 18 12/14/16 06:00 Blood Pressure 135/78 12/14/16 06:00 O2 Sat by Pulse Oximetry (%) 96 12/13/16 22:00 Findings/Remarks: no complaints this am Neck: Yes: Supple Cardiovascular: Yes: Regular Rate and Rhythm Respiratory: Yes: Regular, CTA Bilaterally Gastrointestinal: Yes: Normal Bowel Sounds, Soft. No: Tenderness Labs: CBC, BMP 12/13/16 08:40 12/13/16 08:40 Discharge Summary Reason For Visit: ABDOMINAL PAIN Current Active Problems AV block (Acute) Abdominal pain (Acute) Alkaline phosphatase elevation (Acute) CAD (coronary artery disease) (Acute) Dyspnea (Acute) Prostate cancer (Acute) Prostate cancer metastatic to bone (Acute) Hospital Course: History of Present Illness: The patient is a 76 year old male, with a significant past medical history of CAD s/p (x5) stents, HTN, high cholesterol, who was sent to the emergency department after lab work shows elevated liver enzymes and ferritin level. He arrives with c/os of fatigue, abdominal pain, nausea, and hip pain for about 2 weeks. He denies any black stool or red stool. He notes his last bowel movement was loose. He denies his abdominal pain being related to eating. He notes his abdominal pain is often worse at night, and is in the mid abdomen and is non radiating. He denies any recent fevers, chills, headache or dizziness. He denies any recent vomit, diarrhea or constipation. He denies any recent chest pain or shortness of breath. He denies any recent dysuria, frequency, urgency or hematuria. Allergies: NKA Past surgical history: See HPI Social History: Nonsmoker. Denies EtOH use and recreational drug use. Primary Care Physician: Access Spec: (not with [facility]) History Source: Patient - Past Medical History Cardiovascular: Yes: CAD, HTN, Hyperlipdemia - Problems (1) Prostate cancer Assessment/Plan: follow psa urology Code(s): C61 - MALIGNANT NEOPLASM OF PROSTATE (2) Prostate cancer metastatic to bone Assessment/Plan: await psa urology/oncology Patient with metastatic castrate resistant prostate cancer. He is offered Provenge, Xofigo, Xtandi, or a combination of these as an outpatient. He will also continue Firmagon. Zytiga is less of an option because of his elevated LFTs. Liver US appears to be normal. Code(s): C61 - MALIGNANT NEOPLASM OF PROSTATE C79.51 - SECONDARY MALIGNANT NEOPLASM OF BONE (3) AV block Assessment/Plan: b-blockers decreased monitor on telemetry cardio Assessment/Plan 76-year-old man with a history of hypertension, hyperlipidemia, coronary artery disease, status post multiple stents, status post recent PTCA of the LAD and diagonal branches at the [facility], now presenting with abdominal pain , markedly elevated alkaline phosphatase and ferritin levels. Mild troponin elevation. The patient reports no angina. He is quite comfortable. Would continue present care and work up as per primary team for malignancy. There is no need for further cardiac workup at this point. Tolerating lower beta xochitl dose. Metoprolol 50mg xl daily. Tele demonstrates sinus rhythm with rates 90s with few episodes of blocked pac' s since last night. Will sign off at this time. Can DC tele. Code(s): I44.30 - UNSPECIFIED ATRIOVENTRICULAR BLOCK (4) Alkaline phosphatase elevation Assessment/Plan: check PSA GGTP liver ultrasound/ bone scan--c/w METS GI eval Code(s): R74.8 - ABNORMAL LEVELS OF OTHER SERUM ENZYMES (5) Abdominal pain---resolved Assessment/Plan: inc ALk phos ,ferritin possible bony or liver source GI consult noted check ggtp liver sono ct noted and d/w pt tumor markers sent Code(s): R10.9 - UNSPECIFIED ABDOMINAL PAIN Qualifiers: Abdominal location: epigastric Qualified Code(s): R10.13 - Epigastric pain (3) CAD (coronary artery disease) Assessment/Plan: cardio consult noted--meds adjusted continue asa ,plavix and ranexa for now Code(s): I25.10 - ATHSCL HEART DISEASE OF [place] CORONARY ARTERY W/O ANG PCTRS Condition: Improved - Instructions Referrals: Fely Cho MD [Primary Care Provider] - 1 Week Disposition: HOME - Home Medications Comprehensive Discharge Medication List: Ambulatory Orders Allopurinol [Zyloprim -] 100 mg PO DAILY 12/10/16 Aspirin [ASA -] 81 mg PO DAILY 12/10/16 Atorvastatin Ca [Lipitor] 40 mg PO HS 12/10/16 Clopidogrel Bisulfate [Plavix -] 75 mg PO DAILY 12/10/16 Isosorbide Mononitrate [Imdur -] 30 mg PO DAILY 12/10/16 Ranolazine [Ranexa] 500 mg PO BID 12/10/16 Metoprolol Succinate [Toprol XL -] 50 mg PO DAILY #30 tab 12/14/16
[2016-12-14] MEDS: RANOLAZINE E.R. 500 MG TABLET (FP) PO SCH (09:31)
[2016-12-14] MEDS: ISOSORBIDE MONONITRATE 30 MG TAB.SR.24H (FP) PO SCH (09:31)
[2016-12-14] MEDS: PANTOPRAZOLE SODIUM 100 ML IVPB SCH (09:31)
[2016-12-14] MEDS: HEPARIN NA (PORCINE) 5,000 UNITS/ML 1ML VIAL SQ SCH (09:32)
[2016-12-14] MEDS: METOPROLOL SUCCINATE 50 MG TAB.SR.24H (FP) PO SCH (09:32)
[2016-12-14] MEDS: ASPIRIN 81 MG CHEWABLE TABLETS PO SCH (09:32)
[2016-12-14] MEDS: CLOPIDOGREL BISULFATE 75 MG TABLET (FP) PO SCH (09:32)
[2016-12-14] MEDS: ALLOPURINOL 100 MG TABLET (FP) PO SCH (09:32)
[2016-12-14 10:01] VITALS: BP 113/70; PULSE 88
--- NOTE | 2016-12-14 12:14 | PN ---
Progress Note (short form) - Note Progress Note: Progress Note: Patient seen and examined No complaints Vital Signs Period Temp Pulse Resp BP Sys/Moore Pulse Ox Last 24 Hr 98 F-98.7 F 73-88 18-20 109-135/64-78 96-96 AFVSS HEENT: TRINO, EOM Intact Skin: No rashes, Integument intact Labs: reviewed CBC, BMP 12/13/16 08:40 12/13/16 08:40 Active Medications Generic Name Dose Route Start Last Admin Trade Name Freq PRN Reason Stop Dose Admin Allopurinol 100 mg 12/11/16 10:00 12/14/16 09:32 Zyloprim - PO 100 mg DAILY HERIBERTO Administration Aspirin 81 mg 12/11/16 10:00 12/14/16 09:32 Asa - PO 81 mg DAILY HERIBERTO Administration Atorvastatin Calcium 40 mg 12/10/16 22:00 12/13/16 21:28 Lipitor - PO 40 mg HS HERIBERTO Administration Clopidogrel Bisulfate 75 mg 12/11/16 10:00 12/14/16 09:32 Plavix - PO 75 mg DAILY HERIBERTO Administration Heparin Sodium (Porcine) 5,000 unit 12/10/16 22:00 12/14/16 09:32 Heparin - SQ Not Given BID HERIBERTO Pantoprazole Sodium 100 mls @ 200 mls/hr 12/10/16 20:15 12/14/16 09:31 Protonix 40mg Ivpb (Pre-Docked) IVPB 200 mls/hr DAILY HERIBERTO Administration Isosorbide Mononitrate 30 mg 12/11/16 10:00 12/14/16 09:31 Imdur - PO 30 mg DAILY HERIBERTO Administration Metoprolol Succinate 50 mg 12/13/16 10:00 12/14/16 09:32 Toprol Xl - PO 50 mg DAILY HERIBERTO Administration Ranolazine 500 mg 12/10/16 22:00 12/14/16 09:31 Ranexa - PO 500 mg BID HERIBERTO Administration A/P 76 year old with history of radical prostatectomy in 1997 for prostate cancer. Abnormal bone scan in 2016. Under care of Shawn, Dr. Ku, and receiving hormone injections past 5-[address] Rousseau had a long discussion with his who is more aware of the issues Suggest Follow up with Dr. Ku re:response to hormonal therapy. f/v with as an outpatient CT abd- shows no evidence of liver mets, suspect ALP coming from bone as GGT is normal Check HFE
[2016-12-16 00:06] LABS: ALKALINE PHOSPHATASE 727 IU/L (39-117); INTESTINAL FRAC.: 0 % (0-18)
[2016-12-17 16:24] LABS: ALKALINE PHOSPHATASE 697 IU/L (39-117); INTESTINAL FRAC.: 0 % (0-18)
== END 2016-12-14 12:37 | disposition home or self-care (01) ==
LOC: JER 12:22 → INTOOBSV 17:08 → JERBED 17:08 → UNDOADMOB 17:08 → JERBED 20:36 → J4W 20:36 → JERBED 12-12 12:37 → J4W 12-12 12:37 → J7W 12-12 16:41 → J4W 12-12 18:52
PROVIDERS: ADMIT Family Medicine; ATTEND Family Medicine
PROC: 3E033GC Introduction of Other Therapeutic Substance into Peripheral Vein, Percutaneous Approach (ICD-10-PCS; principal; 2016-12-12)
PROC: 3E013GC Introduction of Other Therapeutic Substance into Subcutaneous Tissue, Percutaneous Approach (ICD-10-PCS; 2016-12-12)
DX: R74.8 Abnormal levels of other serum enzymes (principal); R10.13 Epigastric pain; I10 Essential (primary) hypertension; I44.30 Unspecified atrioventricular block; I25.10 Atherosclerotic heart disease of native coronary artery without angina pectoris; E78.5 Hyperlipidemia, unspecified; Z95.5 Presence of coronary angioplasty implant and graft; Z79.82 Long term (current) use of aspirin; C61 Malignant neoplasm of prostate; C79.51 Secondary malignant neoplasm of bone
CPT/HCPCS: 36415; 71010-TC; 74177-TC; 76705-TC; 78306-TC; 80053; 82550; 82728; 82977; 83036; 83540; 83550; 83615; 83690; 84080; 84153; 84484; 85025; 86301; 93005; 93010; 94660; 99284-25; A9503; G0378; J1644

== ENCOUNTER 2017-01-11 22:22 | Emergency (ER) | payer OTHER ==
[2017-01-11 22:40] VITALS: TEMP 97.8; BMI 34.9
[2017-01-11] MEDS ORDERED: SODIUM CHLORIDE 0.9% 500 ML INFUS.BAG IV ONE ×2 (22:43→23:40)
[2017-01-11 22:53] LABS: MCH 30.9 pg (25.7-33.7); MCHC 33.4 g/dl (32.0-35.9); MEAN CELL VOLUME 92.5 fl (80-96); MEAN PLT VOLUME 7.9 fl (7.5-11.1); PLATELET COUNT 162 K/MM3 (134-434); WHITE BLOOD COUNT 6.4 K/mm3 (4.0-10.0)
--- NOTE | 2017-01-11 22:59 | PDOC ---
History of Present Illness - General History Source: Patient Exam Limitations: No Limitations - History of Present Illness Initial Comments: The patient is a 76 yo M with a past medical history significant for CAD s/p (x5 ) stents, HTN, high cholesterol, metastatic prostate CA spread to the bone who presents with chest pain radiating down both arms and lower abdominal pain. The patient rates his pain 10/10 in intensity. The patient also states hes been coughing up a little bit of blood. The patient states he hasnt been able to eat for the past 2-3 days as hes been nauseous. The patient also notes his abdomen is distended. The patient denies fevers and chills. The patient notes he his taking oxycodone for his pain. The patient notes he has an appointment for radiation for tomorrow. The patient denies palpitations and lightheadedness. The patient denies fevers and chills. PCP: Dr. Cho Allergies: NKDA Social Hx: Former smoker <China Flores - Last Filed: 01/12/17 01:33> <Tiffany Ching - Last Filed: 01/12/17 08:00> - General Chief Complaint: Chest Pain Stated Complaint: CHEST PAIN Time Seen by Provider: 01/11/17 22:41 Past History <China Flores - Last Filed: 01/12/17 01:33> - Past Medical History Cardiac Disorders: Yes CVA: Yes (lt side weakness) HTN: Yes Hypercholesterolemia: Yes - Surgical History Cardiac Surgery: Yes (STENTS x 5) - Immunization History Immunization Up to Date: No - Psycho/Social/Smoking Cessation Hx Anxiety: No Suicidal Ideation: No Smoking History: Former smoker Have you smoked in the past 12 months: No Information on smoking cessation initiated: No Hx Alcohol Use: No Drug/Substance Use Hx: No Substance Use Type: None Hx Substance Use Treatment: No <Tiffany Ching - Last Filed: 01/12/17 08:00> - Past Medical History Allergies/Adverse Reactions: Allergies Allergy/AdvReac Type Severity Reaction Status Date / Time No Known Allergies Allergy Verified 01/11/17 22:40 Home Medications: Ambulatory Orders Allopurinol [Zyloprim -] 100 mg PO DAILY 12/10/16 Aspirin [ASA -] 81 mg PO DAILY 12/10/16 Atorvastatin Ca [Lipitor] 40 mg PO HS 12/10/16 Clopidogrel Bisulfate [Plavix -] 75 mg PO DAILY 12/10/16 Isosorbide Mononitrate [Imdur -] 30 mg PO DAILY 12/10/16 Ranolazine [Ranexa] 500 mg PO BID 12/10/16 Metoprolol Succinate [Toprol XL -] 50 mg PO DAILY #30 tab 12/14/16 Review of Systems - Review of Systems Able to Perform ROS?: Yes Comments:: CONSTITUTIONAL: +loss of appetite Absent: fever, chills, diaphoresis, generalized weakness, malaise HEENT: Absent: rhinorrhea, nasal congestion, throat pain, throat swelling, difficulty swallowing, mouth swelling, ear pain, eye pain, visual Changes CARDIOVASCULAR: +chest pain, LE edema Absent:syncope, palpitations, irregular heart rate, lightheadedness, RESPIRATORY: +hemoptysis Absent: shortness of breath, dyspnea with exertion, orthopnea, wheezing, stridor GASTROINTESTINAL: +abdominal distension, nausea Absent: abdominal pain, vomiting, diarrhea, constipation, melena, hematochezia GENITOURINARY: Absent: dysuria, frequency, urgency, hesitancy, hematuria, flank pain, genital pain MUSCULOSKELETAL: Absent: myalgia, arthralgia, joint swelling SKIN: Absent: rash, itching, pallor NEUROLOGIC: Absent: headache, focal weakness or paresthesias, dizziness, unsteady gait, seizure, mental status changes, bladder or bowel incontinence PSYCHIATRIC: Absent: anxiety, depression, suicidal or homicidal ideation, hallucinations. <China Flores - Last Filed: 01/12/17 01:33> *Physical Exam - Vital Signs Last Vital Signs Temp Pulse Resp BP Pulse Ox 97.8 F 89 19 89/52 100 01/11/17 22:35 01/11/17 22:35 01/11/17 22:35 01/11/17 22:35 01/11/17 22:35 - Physical Exam Comments: GENERAL: Well developed, well nourished. Awake and alert. No acute distress. HEENT: Normocephalic, atraumatic. PERRLA, EOMI. No conjunctival pallor. Sclera are non- icteric. Moist mucous membranes. Oropharynx is clear. NECK: Supple. Full ROM. No JVD. Carotid pulses 2+ and symmetric, without bruits. No thyromegaly. No lymphadenopathy. CARDIOVASCULAR: Regular rate and rhythm. No murmurs, rubs, or gallops. Distal pulses are 2+ and symmetric. PULMONARY: No evidence of respiratory distress. Lungs clear to auscultation bilaterally. No wheezing, rales or rhonchi. ABDOMINAL: Soft. Diffuse tenderness to palpation. Abdomen distended. No rebound or guarding. No organomegaly. Normoactive bowel sounds. MUSCULOSKELETAL Normal range of motion at all joints. No bony deformities or tenderness. No CVA tenderness. EXTREMITIES: No cyanosis. No clubbing. bilateral pitting edema in LE. No calf tenderness. SKIN: Warm and dry. Normal capillary refill. No rashes. No jaundice. NEUROLOGICAL: No gross focal neurological deficits. PSYCHIATRIC: Cooperative. Good eye contact. Appropriate mood and affect. <China Flores - Last Filed: 01/12/17 01:33> - Vital Signs Last Vital Signs Temp Pulse Resp BP Pulse Ox 97.8 F 89 19 89/52 100 01/11/17 22:35 01/11/17 22:35 01/11/17 22:35 01/11/17 22:35 01/11/17 22:35 <Tiffany Ching - Last Filed: 01/12/17 08:00> ED Treatment Course - LABORATORY CBC & Chemistry Diagram: 01/12/17 00:09 01/12/17 00:09 - ADDITIONAL ORDERS Additional order review: 01/11/17 22:45 RBC 3.59 L MCV 92.5 MCHC 33.4 RDW 14.0 MPV 7.9 Neutrophils % 70.0 Lymphocytes % 17.0 D Monocytes % 9.0 D - Medications Given in the ED: ED Medications Discontinued Medications Generic Name Dose Route Start Last Admin Trade Name Freq PRN Reason Stop Dose Admin Acetaminophen 1,000 mg 01/11/17 23:01 01/11/17 23:04 Ofirmev Injection - IVPB 01/11/17 23:02 1,000 mg ONCE ONE Administration Sodium Chloride 500 ml 01/11/17 22:43 01/11/17 22:53 Normal Saline - IV 01/11/17 22:44 500 ml ONCE ONE Administration <China Florse - Last Filed: 01/12/17 01:33> - LABORATORY CBC & Chemistry Diagram: 01/12/17 00:09 01/12/17 00:09 - ADDITIONAL ORDERS Additional order review: 01/11/17 22:45 RBC 3.59 L MCV 92.5 MCHC 33.4 RDW 14.0 MPV 7.9 Neutrophils % Y Lymphocytes % Y - RADIOLOGY Radiology Studies Ordered: Category Date Time Status CHEST X-RAY PORTABLE* [RAD] Stat Radiology 01/11/17 22:43 Ordered - Medications Given in the ED: ED Medications Discontinued Medications Generic Name Dose Route Start Last Admin Trade Name Jennifer PRN Reason Stop Dose Admin Sodium Chloride 500 ml 01/11/17 22:43 01/11/17 22:53 Normal Saline - IV 01/11/17 22:44 500 ml ONCE ONE Administration <Tiffany Ching - Last Filed: 01/12/17 08:00> Medical Decision Making - Medical Decision Making Paged. Dr. naik covering for Dr. Cho @ 23:45. Case was discussed. Upon evaluation in the ED, the patient began to decline. Dopamine and Vasopressin drip was started. Cardiology dish person Dr. Fernandez was consulted who recommended heparin drip despite potential repercussions. Code 99: 00:28 Began compressions,1 Eph, 1 ATSO 00:31 intubation 00:35 Eph 00:36 pulse check Continued compressions 00:37 Bicarb 00:39 Eph 00:42 pulse check Continued compressions 00:44 bedside Echo 00:46 Eph 00:50 Pulse check Continued compressions 00:53 Bicarb 01:15 stopped bagging 1:20 Time of <China Flores - Last Filed: 01/12/17 01:33> - Medical Decision Making 01/12/17 01:50 Pt came to the ER with complaint of 2-3 days of chest and abdominal pain and weakness and inability to eat due to decreased appetite and nausea. Pt and his assumed this was his prostate cancer and bone cancer pain. Pt was unaware that his pain was likely due to an GA. Pt comes now and states that he coughed up streaks of blood. No fever and no chills. No productive cough. Patient has elevated troponin; case d/w PMD Eileen, who agrees that pt's asa and plavix are enough at this time for the GA, given that heparin will worsen the hemoptysis. Pt will be admitted to the ICU; ICU made aware. Pt also has a doubling of Alk phos 800s previously to 1700s today. Unclear if pt has GB pathology and sonogram was ordered. Pt suddenly became unresponsive, and lost consciousness and stinson snoring. Appreared stroke or seizure like. Pt soon came to; BP was low and pt appeared pale. Heart rate was slow at 30s-40s. Pt was given atropine and epinephrine, then he regained responsiveness and was speaking to us clearly. Pt was uncomfortable with CP. Pt too unstable for CT head to r/o brain insult. Pt was then placed on dopamine drip. Cardiology consulted and Dr. Chris recommended heparin drip and bolus depite GI/pulm bleed, as pt has more benefit than risk given turn of pt's status. Heparin started, as well as levophed. Pt was stable for a short time, but became brasycardic. We began coding the patient. See code sheet. Family at bedside or near bedside througout the code. Time of 1:20AM Family at bedside plans examiner, Mark Agarwal released the case# [id number] Naik/Marquis to notify him to sign the certificate. 01/12/17 07:49 Dr. Cho's service made aware of the ; I left a message on PMD's cellphone. <Tiffany Ching - Last Filed: 01/12/17 08:00> *DC/Admit/Observation/Transfer - Attestations Scribe Attestion: Documentation prepared by China Flores, acting as chief medical physicist for Tiffany Ching MD/DO. <China Flores - Last Filed: 01/12/17 01:33> <Tiffany hCing - Last Filed: 01/12/17 08:00> Diagnosis at time of Disposition: Myocardial infarction - Discharge Dispostion Disposition: Condition at time of disposition: - Referrals Referrals: Fely Cho MD [Primary Care Provider] -
[2017-01-11] MEDS ORDERED: ACETAMINOPHEN 1000 MG/100 ML VIAL (NON FORMULARY) IVPB ONE (23:01)
[2017-01-11] MEDS ORDERED: ACETAMINOPHEN INJECTION 100 ML IVPB ONE (23:02)
[2017-01-11 23:06] LABS: INR 1.45 (0.82-1.09); PROTHROMBIN TIME (PATIENT) 16.1 SEC (9.98-11.88)
[2017-01-11 23:14] LABS: ALBUMIN 2.9 g/dl (3.4-5.0); ANION GAP 11 (8-16); BILIRUBIN,TOTAL 1.2 mg/dL (0.2-1.0); CO2 23 mmol/L (21-32); CREATININE 1.3 mg/dL (0.7-1.3); GLUCOSE,RANDOM 156 mg/dL (74-106); MAGNESIUM 2.6 mg/dL (1.8-2.4); PHOSPHOROUS 3.5 mg/dL (2.5-4.9); SGOT/AST 48 U/L (15-37); SGPT/ALT 27 U/L (12-78)
[2017-01-11 23:23] LABS: HYPOCHROMIA FEW; PLATELET ESTIMATE ADEQUATE (NORMAL); POLYCHROMASIA 1+
[2017-01-11 23:28] LABS: CPK 323 IU/L (39-308)
[2017-01-11 23:29] LABS: ALK PHOS 1763 U/L (45-117)
[2017-01-11 23:30] LABS: CALCIUM 5.3 mg/dL (8.5-10.1); TROPONIN I 1.98 ng/ml (0.00-0.05)
[2017-01-11 23:37] VITALS: BP 90/66; PULSE 85
[2017-01-11] MEDS ORDERED: ONDANSETRON 4 MG/2 ML VIAL IVPB ONE (23:40)
[2017-01-11] MEDS ORDERED: ATROPINE SULFATE 1 MG/10 ML DISP.SYRIN ONE (23:49)
[2017-01-11] MEDS ORDERED: DOPAMINE 400 MG/D5W - 250 ML IVPB ONE (23:51)
[2017-01-12] MEDS ORDERED: HEPARIN INFUSION - 500 ML IVPB ONE (00:04)
[2017-01-12] MEDS ORDERED: HEPARIN NA (PORCINE) 5,000 UNITS/ML 1ML VIAL ONE (00:04)
[2017-01-12] MEDS ORDERED: VASOPRESSIN 20 UNITS/ML VIAL IV ONE (00:08)
[2017-01-12] MEDS ORDERED: PIPERACILLIN/TAZOB 3.375 GM 50 ML IVPB ONE (00:12)
[2017-01-12] MEDS ORDERED: RAPID SEQUENCE INTUBATION KIT NR ONE (00:33)
[2017-01-12 00:41] LABS: MCH 30.9 pg (25.7-33.7); MCHC 32.1 g/dl (32.0-35.9); MEAN CELL VOLUME 96.4 fl (80-96); MEAN PLT VOLUME 8.4 fl (7.5-11.1); PLATELET COUNT 154 K/MM3 (134-434); RDW 14.4 % (11.9-15.9); WHITE BLOOD COUNT 11.1 K/mm3 (4.0-10.0)
[2017-01-12 00:43] LABS: INR 1.43 (0.82-1.09); PROTHROMBIN TIME (PATIENT) 15.9 SEC (9.98-11.88)
[2017-01-12 00:56] LABS: ALBUMIN 2.8 g/dl (3.4-5.0); ANION GAP 16 (8-16); BILIRUBIN,TOTAL 1.1 mg/dL (0.2-1.0); CO2 17 mmol/L (21-32); CREATININE 1.3 mg/dL (0.7-1.3); GLUCOSE,RANDOM 170 mg/dL (74-106); SGOT/AST 52 U/L (15-37); SGPT/ALT 27 U/L (12-78); TOT PROT 5.9 g/dl (6.4-8.2)
[2017-01-12] MEDS ORDERED: morphine CARPU-JECT 10 MG/1 ML DISP.SYRIN ONE (01:07)
[2017-01-12 01:10] LABS: CPK 334 IU/L (39-308)
[2017-01-12 01:16] LABS: ALK PHOS 1774 U/L (45-117)
[2017-01-12 01:17] LABS: CALCIUM 5.2 mg/dL (8.5-10.1)
[2017-01-12 01:18] LABS: TROPONIN I 2.29 ng/ml (0.00-0.05)
[2017-01-12 02:23] LABS: BASOPHIL 0.4 % (0-2.0); EOSINOPHIL 0.8 % (0-4.5); NEUTROPHILS 45.4 % (42.8-82.8)
[2017-01-12] MEDS ORDERED: HEPARIN NA (PORCINE) 5,000 UNITS/ML 1ML VIAL IVPUSH PRN ×3 (03:18)
[2017-01-12] MEDS ORDERED: morphine CARPU-JECT 4 MG/1 ML DISP.SYRIN IVPUSH ONE (03:18)
[2017-01-12 03:22] LABS: AMYLASE 73 U/L (25-115)
[2017-01-12] MEDS ORDERED: HEPARIN INFUSION - 500 ML IVPB SCH (03:30)
--- NOTE | 2017-01-12 09:50 | EKG ---
Test Reason : Blood Pressure : / mmHG Vent. Rate : 081 BPM Atrial Rate : 081 BPM P-R Int : 192 ms QRS Dur : 136 ms QT Int : 502 ms P-R-T Axes : 043 108 000 degrees QTc Int : 583 ms NORMAL SINUS RHYTHM RIGHT BUNDLE BRANCH BLOCK ABNORMAL ECG WHEN COMPARED WITH ECG OF 11-DEC-2016 09:06, QRS VOLTAGE HAS DECREASED QT HAS LENGTHENED Confirmed by LAURA JACOBS MD ([id number]) on 01/12/2017 9:50:13 AM Referred By: Confirmed By:LAURA JACOBS MD
== END 2017-01-12 02:00 | disposition expired ==
LOC: JER 22:22 → SUPCPDRO 22:22 → JER 01-12 02:00
PROC: 5A12012 Performance of Cardiac Output, Single, Manual (ICD-10-PCS; principal; 2017-01-11)
PROC: 0BH17EZ Insertion of Endotracheal Airway into Trachea, Via Natural or Artificial Opening (ICD-10-PCS; 2017-01-11)
PROC: 5A1935Z Respiratory Ventilation, Less than 24 Consecutive Hours (ICD-10-PCS; 2017-01-11)
PROC: 3E033NZ Introduction of Analgesics, Hypnotics, Sedatives into Peripheral Vein, Percutaneous Approach (ICD-10-PCS; 2017-01-11)
PROC: 3E033NZ Introduction of Analgesics, Hypnotics, Sedatives into Peripheral Vein, Percutaneous Approach (ICD-10-PCS; 2017-01-11)
PROC: 3E033GC Introduction of Other Therapeutic Substance into Peripheral Vein, Percutaneous Approach (ICD-10-PCS; 2017-01-11)
PROC: 3E033GC Introduction of Other Therapeutic Substance into Peripheral Vein, Percutaneous Approach (ICD-10-PCS; 2017-01-11)
DX: I46.8 Cardiac arrest due to other underlying condition (principal); I21.3 ST elevation (STEMI) myocardial infarction of unspecified site; I25.10 Atherosclerotic heart disease of native coronary artery without angina pectoris; I10 Essential (primary) hypertension; Z95.5 Presence of coronary angioplasty implant and graft; E78.00 Pure hypercholesterolemia, unspecified; I69.854 Hemiplegia and hemiparesis following other cerebrovascular disease affecting left non-dominant side; Z85.46 Personal history of malignant neoplasm of prostate; Z85.830 Personal history of malignant neoplasm of bone; Z87.891 Personal history of nicotine dependence
CPT/HCPCS: 31500; 36415; 71010-TC; 76705-TC; 80053; 82150; 83605; 83690; 83735; 84100; 84484; 85025; 85610; 86850; 86900; 86901; 92950; 93005; 93010; 96365; 96375; 99285-25; J1644